=== PATIENT | male | born 1955 | race Caucasian/White ===

== ENCOUNTER 2023-02-14 10:12 | Day surgery (SDC) | payer MEDICARE, SELFPAY ==
--- NOTE | 2023-02-13 08:48 | HO.ANESPROP2 ---
Documented by User: Zara Cristobal NP 02/13/23 08:48 HPI - Anesthesia Eval Consult details Narrative: 67yo M for Upper Endoscopy and Colonoscopy [facility] Past Medical History Medical History (Updated 02/12/23 @ 13:51 by Zara Cristobal NP) BPH (benign prostatic hyperplasia) GERD (gastroesophageal reflux disease) Nephrolithiasis Tubular adenoma Surgical History Surgical History (Updated 02/12/23 @ 13:51 by Zara Cristobal NP) H/O colonoscopy () Social History Social History Patient Tobacco Use Status: Former Tobacco user Use of substances other than those prescribed or required for medical reasons: No Are you DNR?: No Advance Directives: No Advance Directives Information Provided: Yes Recently lost weight without trying: No Nutrition Risks: No Nutritional Risk Meds Allergies Allergy/AdvReac Type Severity Reaction Status Date / Time Seasonal Allergies Allergy Unknown Unknown Verified 02/12/23 13:50 Home Medications Medication Instructions Recorded Confirmed Last Taken Type fluoxetine 20 mg capsule 20 mg PO DAILY 02/12/23 02/12/23 Unknown History fluticasone propionate 50 2 spray intranasal DAILY 02/12/23 02/12/23 Unknown History mcg/actuation nasal spray,suspension omeprazole 20 mg capsule,delayed 20 mg PO DAILY 02/12/23 02/12/23 Unknown History release terazosin 10 mg capsule 10 mg PO BEDTIME 02/12/23 02/12/23 Unknown History Exam Exam Date and Time: February 13, 2023 0848 Assessment and Plan Assessment Anesthesia Assessment: Chart Reviewed Documented by User: Yun Ramirez MD 02/14/23 11:13 [facility] Past Medical History Medical History (Updated 02/12/23 @ 13:51 by Zara Cristobal NP) BPH (benign prostatic hyperplasia) GERD (gastroesophageal reflux disease) Nephrolithiasis Tubular adenoma Family History Family history of problems with anesthesia: No Surgical History Surgical History (Updated 02/12/23 @ 13:51 by Zara Cristobal NP) H/O colonoscopy (~2018) History of Problems with Anesthesia: No Social History Social History Patient Tobacco Use Status: Former Tobacco user Use of substances other than those prescribed or required for medical reasons: No Are you DNR?: No Advance Directives: No Advance Directives Information Provided: Yes Recently lost weight without trying: No Nutrition Risks: No Nutritional Risk Meds Allergies Allergy/AdvReac Type Severity Reaction Status Date / Time Seasonal Allergies Allergy Unknown Unknown Verified 02/12/23 13:50 Home Medications Medication Instructions Recorded Confirmed Last Taken Type fluoxetine 20 mg capsule 20 mg PO DAILY 02/12/23 02/12/23 Unknown History fluticasone propionate 50 2 spray intranasal DAILY 02/12/23 02/12/23 Unknown History mcg/actuation nasal spray,suspension omeprazole 20 mg capsule,delayed 20 mg PO DAILY 02/12/23 02/12/23 Unknown History release terazosin 10 mg capsule 10 mg PO BEDTIME 02/12/23 02/12/23 Unknown History Exam Airway Mallampati Class: II TM Dist: >3cm Neck ROM: Full Heart: rrr Lungs: cta Assessment and Plan Assessment Anesthesia Assessment: Anesthesia Plan Discussed Final Anesthetic Review Family History of Problems with Anesthesia: No History of Problems with Anesthesia: No NPO: Yes ASA Class: II Final Preanesthetic Review: No Changes in Pt Med Stat, Meds/Allgs Chart Reviewed, Consent Obtained/Reviewed and Anes Risks/Benef Reviewed Patient Risk: Low Procedure Risk: Low Anesthetic Plan Anesthetic Plan: MAC: Disposition: Standard PACU
[2023-02-14 10:26] VITALS: BMI 29.8
[2023-02-14 10:38] VITALS: BP 156/56; PULSE 58; RESP 16; TEMP 36.4; O2SAT 98
[2023-02-14] MEDS: Lactated Ringers 1,000 ML 100 ML IVCONT (10:45)
--- NOTE | 2023-02-14 11:01 | MHC.SHP ---
Pre-Procedural Eval Section A Date of Service: 02/14/23 Section B Chief Complaint: screening,reflux Details of Present Illness: see H&P no changes Relevant Family History (Specify if Yes): No Relevant Social History: None Present Medications: see Short Stay Collaborative assessment Medical History: No relevant PMH History of Previous Operations: No relevant previous surgery Allergies: Allergies Allergy/AdvReac Type Severity Reaction Status Date / Time Seasonal Allergies Allergy Unknown Unknown Verified 02/12/23 13:50 Review of Systems Sugical H&P ROS: Negative: Constitution, Cardiovascular, Respiratory, Neurological, Psychiatric, Hem-Onc, Allergic/Immunologic, Gastrointestinal, Genitourinary, Musculoskeletal, Integumentary, Endocrine and Eyes/Ears/Nose/Throat Exam Surgical H&P Exam: Normal: HEENT, Normal: Heart, Normal: Lungs, Normal: Extremities, Normal: Abdomen, Normal: Skin and Normal: Neurological Plan Diagnosis/Plan: Unchanged I have reviewed the history and physical and performed a pertinent physical examination on my patient. No changes have occurred unless specified. Time Spent With Patient Time: Total time managing care of this patient today ____ minutes.
[2023-02-14 11:50] VITALS: BP 94/46; PULSE 54; RESP 16; TEMP 36.2; O2SAT 90
--- NOTE | 2023-02-14 11:57 | P.BOP_ITS ---
Brief Operative Note Date of Service: 02/14/23 Pre-op diagnosis: gerd screening Post-op diagnosis: same Procedure: egdcolon Surgeon: Leon Noyola Anesthesia: MAC Was an Head Baggage Porter used for this Procedure?: No Estimated blood loss (mL): 2 Pathology: other Condition: stable Disposition: PACU
[2023-02-14 12:06] VITALS: BP 121/68; PULSE 60; RESP 14; TEMP 36.2; O2SAT 98
[2023-02-14 12:21] VITALS: BP 129/67; PULSE 60; RESP 15; TEMP 36.2; O2SAT 98
--- NOTE | 2023-02-14 13:05 | OP_ITS ---
DATE OF SERVICE: 02/14/2023 SURGEON: Leon Noyola MD INDICATIONS: 1. Gastroesophageal reflux disease. 2. Colon cancer screening. PREOPERATIVE DIAGNOSIS: POSTOPERATIVE DIAGNOSIS: PROCEDURE PERFORMED: Upper endoscopy with biopsy, colonoscopy to the terminal ileum with biopsy. ESTIMATED BLOOD LOSS: COMPLICATIONS: ANESTHESIA: Monitored anesthesia care. ASSISTANTS: SPECIMENS: DESCRIPTION OF PROCEDURE: History and physical was performed. The risks and benefits of the procedure were explained to the patient. Informed consent was obtained. The patient was placed in the left lateral decubitus position. The Olympus video gastroscope was introduced into the esophagus, stomach, and duodenum. Examination was performed. The scope was removed. He tolerated the procedure well and was repositioned for colonoscopy. A digital rectal exam was performed and was found to be normal. The Olympus pediatric video colonoscope was introduced into the rectum and advanced to the cecum without difficulty. The cecum was identified by transillumination, palpation, and identification of the ileocecal valve. Examination was performed. The scope was removed. He tolerated the procedure well and was returned to the recovery area in stable condition. FINDINGS: Upper endoscopy: 1. Esophagus: The esophagus was normal. There was an irregular EG junction. This was biopsied. 2. Stomach: The stomach showed several benign-appearing polyps measuring less than 10 mm in the body and fundus. Two of these were biopsied. Antral biopsies were also obtained to evaluate for H pylori. 3. Duodenum: The bulb and 2nd portion were normal. Colonoscopy: The terminal ileum was normal. The visualized colonic mucosa was normal. The quality of the prep was good. There was mild sigmoid diverticulosis. A single polyp measuring less than 5 mm was identified at 80 cm, removed with a biopsy forceps. No other polyps were seen. Retroflexed examination showed some small internal hemorrhoids. IMPRESSION: 1. Gastric polyps. 2. Gastroesophageal reflux disease. 3. Colon polyp. RECOMMENDATION: Follow up the biopsy results. MD NATA Pitt/ANASTASIIA / [id number]
== END 2023-02-14 12:53 | disposition home or self-care (01) ==
PROVIDERS: PCP Internal Medicine; Visit Provider Internal Medicine Gastroenterology
PROC: (CPT 45380; principal; 2023-02-14 11:20)
DX: Z12.11 Encounter for screening for malignant neoplasm of colon (principal); Z86.010 Personal history of colon polyps; K63.5 Polyp of colon; K57.30 Diverticulosis of large intestine without perforation or abscess without bleeding; K64.8 Other hemorrhoids; K21.9 Gastro-esophageal reflux disease without esophagitis; K31.7 Polyp of stomach and duodenum; N40.0 Benign prostatic hyperplasia without lower urinary tract symptoms; N20.0 Calculus of kidney; J30.2 Other seasonal allergic rhinitis; Z79.51 Long term (current) use of inhaled steroids; Z79.899 Other long term (current) drug therapy
CPT/HCPCS: 45380; 43239; 88305; 88342; J2250